=== PATIENT | female | born 1985 | race American Indian/Alaskan Native ===

== ENCOUNTER 2018-12-25 09:15 | Emergency (ER) | payer OTHER ==
[2018-12-25 09:34] VITALS: BP 133/94
--- NOTE | 2018-12-25 11:21 | Emergency Department Report ---
Abscess Boil HPI - HPI Chief Complaint: Urogenital-Female Stated Complaint: CYST ON VULVA Time Seen by Provider: 12/25/18 10:24 Duration: 2 Days Location: Other Severity: None History: Yes Pain, No Purulent Drainage, No Numbness, No Foreign Body, No Previous History, No Insect Bite HPI: 33-year-old [place] female to emergency Department complaining of a few day history of a Bartholin's cyst to her vaginal area that is becoming more large and tender associated with a scant amount of vaginal discharge but she reports no suspicion for an STD. Denies any vaginal bleeding reports no fever, chills, sweats, dysuria. No flank pain or abdominal pain. Reports no previous history of a Bartholin's cyst. Allergies/Adverse Reactions: Allergies Allergy/AdvReac Type Severity Reaction Status Date / Time No Known Allergies Allergy Verified 12/25/18 09:34 ED Review of Systems ROS: Stated complaint: CYST ON VULVA Other details as noted in HPI Comment: All other systems reviewed and negative ED Past Medical Hx - Past Medical History Previous Medical History?: Yes Additional medical history: bartholin's cyst - Surgical History Past Surgical History?: Yes Additional Surgical History: hernia repair. endometriosis - Social History Smoking Status: Current Some Day Smoker Substance Use Type: Alcohol ED Abscess Boil Physical Exam - Exam General: Vital signs noted. No distress. Alert and acting appropriately. Size: 3 cm Exam: Yes Tenderness, Yes Fluctuance, Yes Surrounding Cellulites/Erythema, Yes Normal Circulation, No Lymphangitis, No Crepitation, No Heart Murmur, No Normal Neurologic Exam I & D Note - I & D Note I & D Note: Area prepped and draped in sterile fashion. Sees achieved with 2% lidocaine with epinephrine. #11 scalp blade used to incise copious amounts of purulent discharge was evacuated. Wound was irrigated Wurd catheter place position the procedure tolerated well. No complications. ED Course Vital Signs 12/25/18 09:33 Temperature 98.0 F Pulse Rate 75 Respiratory 16 Rate Blood Pressure 133/94 O2 Sat by Pulse 98 Oximetry Critical care attestation.: If time is entered above; I have spent that time in minutes in the direct care of this critically ill patient, excluding procedure time. ED Disposition Condition: Stable
[2018-12-25] MEDS ORDERED: XYLOCAINE 2% INFILTRATI STA (12:34)
[2018-12-25] MEDS ORDERED: XYLOCAINE 2% INFILTRATI ONE (12:38)
== END 2018-12-25 13:32 | disposition home or self-care (01) ==
LOC: ED 09:15
DX: N75.1 Abscess of Bartholin's gland (principal)
CPT/HCPCS: 99282